=== PATIENT | female | born 1980 | race Caucasian/White ===

== ENCOUNTER 2018-03-31 10:45 | Inpatient (IN) | payer OTHER ==
[~2018-03-31] VITALS: Ht 157.5 cm; Wt 59.4 kg
[2018-03-31] MEDS ORDERED: LUPRON DEPOT3.75 M1 IM (14:12)
[2018-04-04] MEDS ORDERED: CODE1TAB37 PO (09:02)
[2018-04-04] MEDS ORDERED: NAPR500T14 PO (09:02)
== END 2018-04-04 10:00 | DRG 743 ==
LOC: O/R 04-01 07:34 → OB/GYN 04-01 07:34 → SURH 04-01 10:45 → OB/GYN 04-01 13:33 → O/R 04-01 17:27 → OB/GYN 04-01 17:28
PROVIDERS: Obstetrics & Gynecology
PROC: 0UB90ZZ Excision of Uterus, Open Approach (ICD-10-PCS; principal; 2018-04-01 10:45)
DX: D25.1 Intramural leiomyoma of uterus (principal)

== ENCOUNTER 2024-06-23 06:14 | Day surgery (SDC) | payer OTHER ==
[2024-06-17 09:12] VITALS: BP 113/78
[2024-06-17 09:32] LABS: PH,URINE 5.5 (5.0-8.0); URINE APPEARANCE Clear; URINE BILIRRUBIN Negative (NEGATIVE); URINE BLOOD NHT; URINE COLOR Yellow; URINE GLUCOSE Negative (NEGATIVE); URINE KETONE Negative (NEGATIVE); URINE LEUKOCYTE Negative; URINE NITRATE Negative; URINE PROTEIN Negative (NEGATIVE); URINE UROBILINOGEN 0.2 E.U./dl
[2024-06-17 09:33] LABS: URINE BACTERIA 1146.7 uL (0.0-1933); URINE EPITHELIAL CELLS 20.7 uL (0.0-38.8); URINE RBC 8.9 uL (0.0-20.8); URINE WBC 6.4 uL (0.0-23.2)
[2024-06-17 09:37] LABS: URINE CAST 0.58 uL (0.0-1.40)
[2024-06-17 09:45] LABS: HEMATOCRIT 33.1 % (36.0-45.00); HEMOGLOBIN 10.7 g/dL (12.0-15.00); MEAN CELL VOLUME 81.7 fL (80.00-100.00); MEAN CORPUSCULAR HEMOGLOBIN 26.4 pg (27.00-32.0); MEAN CORPUSCULAR HGB CONC 32.3 g/dl (32.0-36.0); PLATELET COUNT 315 K/uL (150-450); RED BLOOD COUNT 4.05 M/uL (4.00-6.00); RED CELL DISTRIBUTION WIDTH 15.7 % (11.5-14.5)
[2024-06-17 09:55] LABS: INR < 0.93; PARTIAL THROMBOPLASTIN TIME 26.1 SECONDS (22.0-34.0)
[2024-06-17 10:03] LABS: ALBUMIN 3.7 gm/dL (3.4-5.0); BILIRUBIN TOTAL 0.21 mg/dL (0.3-1.2); CALCIUM 9.2 mg/dL (8.5-10.1); CREATININE SERUM 0.61 mg/dL (0.55-1.02); GFR 106.55; GLOBULINA 3.3 G/DL (2.4-3.5); POTASSIUM 4.38 mEq/L (3.5-5.1)
[~2024-06-23] VITALS: Ht 154.9 cm; Wt 59.0 kg
[~2024-06-23 06:14] MED LIST: CODE1TAB37 PO; LUPRON DEPOT3.75 M1 IM; NAPR500T14 PO
[2024-06-23] MEDS ORDERED: POVIDONE-IODINE 118 ML BOTT TOP ONE (10:23)
[2024-06-23] MEDS ORDERED: METRONIDAZOLE/SODIUM CHLORIDE 500 MG/100 ML PIGGYBACK IV ONE ×2 (10:23→11:02)
[2024-06-23] MEDS ORDERED: CHLORHEXIDINE GLUCONATE 120 ML BOTTLE TOP ONE (10:32)
[2024-06-23] MEDS ORDERED: METROnidazole 500 MG TABLET PO ONE (11:01)
[2024-06-23] MEDS ORDERED: DOXYCYCLINE HY100 M2 PO (12:14)
[2024-06-23] MEDS ORDERED: NAPROXEN500 MG PO (12:14)
[2024-06-23] MEDS ORDERED: MORPHINE SULFATE 4 MG/ML VIAL IV ONE (13:20)
[2024-06-23] MEDS ORDERED: ONDANSETRON HCL 2 MG/ML VIAL ONE (13:40)
== END 2024-06-23 14:40 | disposition home or self-care (01) ==
LOC: CIR.AMB 06:14
PROVIDERS: ATTEND Obstetrics & Gynecology
DX: D25.0 Submucous leiomyoma of uterus (principal); N84.0 Polyp of corpus uteri; N88.2 Stricture and stenosis of cervix uteri; N95.0 Postmenopausal bleeding; Z88.0 Allergy status to penicillin; Z91.013 Allergy to seafood; J32.9 Chronic sinusitis, unspecified